=== PATIENT | male | born 1975 | race Caucasian/White ===

== ENCOUNTER 2022-08-28 08:27 | Emergency (ER) | payer BC ==
[~2022-08-28] VITALS: Ht 182.9 cm; Wt 90.7 kg
[2022-08-28] MEDS ORDERED: CITALOPRAM HBR20 MG PO (08:41)
[2022-08-28] MEDS ORDERED: CLONAZEPAM2 M1 PO (08:42)
== END 2022-08-28 09:52 | disposition home or self-care (01) ==
LOC: ER 08:27
DX: H66.91 Otitis media, unspecified, right ear (principal); F41.8 Other specified anxiety disorders